=== PATIENT | female | born 2005 | race Caucasian/White ===

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

== ENCOUNTER 2025-01-04 18:18 | Emergency (ER) | payer OTHER, SELFPAY ==
--- OUTSIDE RECORDS SUMMARY | 2025-01-04 18:21 | XMS_ITS | Encounter Summary ---
Author Organization [facility] Address [address] [place] [address] Care Team Providers Care Human Factors Engineer Name Role Phone Anaid Luong MD Primary Care Provider [phone] Bria Mendoza DO Unavailable [phone] Reason for Visit * Reason Onset Date Comments Refill Request 04/26/2019 Levothyroxine Encounter Details Date Type Department Care Team (Late st Contact Info) Description 04/26/2019 Telephone [facility] Pediatrics - Endocrinology [address] [place] [id number] Mendy Carrasco Refill Request (Levothyroxine ) Social History Tobacco Use Types Packs/Day Years Used Date Smoking Tobacco: Never Smokeless Tobacco: Never Comments No Sex and Gender Information Value Date Recorded Sex Assigned at Female 08/08/2022 1:01 PM HOUSEKEEPER AND LAUNDRY ASSISTANT Legal Sex Female 5:44 AM HOUSEKEEPER AND LAUNDRY ASSISTANT Gender Identity Female 08/08/2022 1:01 PM HOUSEKEEPER AND LAUNDRY ASSISTANT Sexual Orientation Not on file documented as of this encounter Functional Status * Is person deaf or have serious hearing difficulty? Answer Date of Assessment Author No 03/15/2015 2:20 PM CDT Heron Smith RN * Is person blind or have serious difficulty seeing? Answer Date of Assessment Author No 03/15/2015 2:20 PM CDT Heron Smith RN * Does person have serious difficulty walking/climbing stairs? Answer Date of Assessment Author No 03/15/2015 2:20 PM CDT Heron Smith RN * Does person have difficulty dressing/bathing? Answer Date of Assessment Author No 03/15/2015 2:20 PM CDT Heron Smith RN * Does person have difficulty doing errands alone? Answer Date of Assessment Author No 03/15/2015 2:20 PM CDT Heron Smith RN documented as of this encounter Mental Status * Does person have difficulty concentrating/remembering/making decisions? Answer Entry Date Author No 03/15/2015 2:20 PM CDT Heron Smith RN documented in this encounter Plan of Treatment Not on file documented as of this encounter Visit Diagnoses Not on filedocumented in this encounter Care Teams Human Factors Engineer Relationship Specialty Start Date End Date Anaid Luong MD [address] [place] [address] PCP - General 11/22/10 Bria Mendoza DO [address] [place] [address] Pediatrics 12/07/19 documented as of this encounter
--- OUTSIDE RECORDS SUMMARY | 2025-01-04 18:21 | XMS_ITS | Patient Health Record ---
Author Organization [facility] Address [address] [place] [address] Care Team Providers Care Keeler Polygraph Operator Name Role Phone Rosalie Barrientos [phone] Reason For Referral No Information Encounters Encounter Location Date Provider Diagnosis [facility] - Rosalie Barrientos [address] [place] [address] 09/13/2024 Rosalie Barrientos Plan Of Treatment No Information
--- OUTSIDE RECORDS SUMMARY | 2025-01-04 18:21 | XMS_ITS ---
Author Organization [employer] [facility] Address [address] [address] Care Team Providers Care Toll Line Repairer Name Role Phone Rosalie Barrientos [phone] REASON FOR VISIT est. care vincenzo Encounters Encounter Location Date Provider Diagnosis [facility] - Rosalie Barrientos [address] [place] [address] 09/13/2024 Rosalie Barrientos Plan Of Treatment No Information Progress Notes * Malissa LEBRONOB:[birth year] (19 yo F)Acc No.[id number]:09/13/2024 Progress Notes Patient: Sam PATEL Provider: Efra Barrientos MD :2005 A ge:18 Y S ex:Female Date:09/13/2024 Address:[address] [place] [address] Earl Alexanderksfunmilayo [id number] Subjective: * Chief Complaints: * 1 . Est. care vincenzo. * Medical History: Objective: * Vitals: Assessment: Plan: * Treatment: * Billing Information: * Visit Code: * Procedure Codes: * Electronic signature of Celestino Barrientos MD on 01/04/2025 at 06:20 PM CDT Sign off status: Pending * Provider: Efra Barrientos MD Date: 0 09/13/2024 Generated for Printi ng/Faxing/eTransmitting on: 0 01/04/2025 06:20 PM CDT
--- OUTSIDE RECORDS SUMMARY | 2025-01-04 18:21 | XMS_ITS | Encounter Summary ---
Author Organization [facility] Address [address] [place] [address] Care Team Providers Care Sharepoint Net Developer Name Role Phone Anaid Luong MD Primary Care Provider [phone] Bria Mendoza DO Unavailable [phone] Reason for Visit * Reason Onset Date Comments Results 01/27/2012 Encounter Details Date Type Department Care Team (Late st Contact Info) Description 01/27/2012 Telephone [facility] Pediatrics - Immunology [address] [place] [id number] Tamra Black RN Results Social History Tobacco Use Types Packs/Day Years Used Date Smoking Tobacco: Never Comments Unknown Sex and Gender Information Value Date Recorded Sex Assigned at Female 08/08/2022 1:01 PM TUBULAR PRODUCTS FABRICATOR Legal Sex Female 5:44 AM TUBULAR PRODUCTS FABRICATOR Gender Identity Female 08/08/2022 1:01 PM TUBULAR PRODUCTS FABRICATOR Sexual Orientation Not on file documented as [...] diseases documented in this encounter Care Teams Sharepoint Net Developer Relationship Specialty Start Date End Date Anaid Luong MD [address] [place] [address] [address] [place] [address] PCP - General 11/22/10 Bria Mendoza DO [address] [place] [address] Pediatrics 12/07/19 documented as of this encounter
--- OUTSIDE RECORDS SUMMARY | 2025-01-04 18:21 | XMS_ITS | Clinical Summary ---
Author Organization [facility] Address [address] [facility] [place] [address] Care Team Providers Care Case Consultant Name Role Phone Anaid Luong MD Primary Care Provider [phone] Bria Mendoza DO Unavailable Source Comments [facility],non-owned Affiliates and Associated Physician Practices is amultiple site organization consisting of ambulatory clinics and hospital sitesin [place], [place], [place] and [place]. This disclosure is being madepursuant to the Care Everywhere program and may not contain all information available regarding this patient. Last updated 18.[facility] Allergies No known active allergies Medications * Be aware that medications may not be up to date on this document. Alwaysverify current medications with the patient. Spacer/Aero-Holdin g Chambers (AEROCHAMBER PLUS W/MASK)Indications :Asthma Use as directed. 1 Device 1 2 Active cetirizine (ZYRTEC) 10 MG tablet Take 1 (one) tablet by mouth once daily Active fluticasone propionate (FLONASE) 50 MCG/ACT nasal sprayIndications:S easonal allergic rhinitis due to pollen INSTIL ONE SPRAY INTO EACH NOSTRIL EVERY DAY 16 g 1 0 Active B Complex Vitamins (VITAMIN B COMPLEX 100 IJ) 1 tablet by Injection route Active albuterol HFA (PROVENTIL; VENTOLIN; PROAIR) 108 (90 Base) MCG/ACT inhalerIndications :Mild persistent asthma without complication (HCC) INHALE 2 PUFFS VIA SPACER EVERY 4 HOURS NEEDED FOR WHEEZING 18 g 3 2 Active budesonide-formote rol (Symbicort) 80-4.5 MCG/ACT inhalerIndications :Mild persistent asthma without complication (HCC) Inhale 2 (two) puffs by mouth 2 times daily 10.2 g 5 3 Active levothyroxine (Synthroid) 75 MCG tabletIndications: Acquired hypothyroidism TAKE 1/2 TABLET BY MOUTH EVERY DAY BEFORE BREAKFAST 15 tablet 5 5 Active Active Problems Patient Care Coordination No te [...] 1.3 Assessment & Plan (08/03/2019 4:18 PM MAINTENANCE SUPERVISOR ELECTRICAL): Scheduled for adenotonsillectomy now in October (during [...] has had the influenza vaccine for the 0039-0607 season. The patient's parent(s) and I discussed [...] medications. Assessment & Plan (08/03/2019 4:16 PM MAINTENANCE SUPERVISOR ELECTRICAL): As noted below, continues to do quite [...] care for likely viral gastroenteritis. Follow-up with programs director in 2-3 days. Recurrent infections 01/15/2012 Overview [...] PRN Assessment & Plan (07/02/2016 1:49 PM MAINTENANCE SUPERVISOR ELECTRICAL): Recent increase in symptoms, frequent albuterol use and wheezing noted on exam. Has typically struggled more at this time of the year. Has been off Flovent for some time. Rec: Restart Flovent 44 2 puffs bid Albuterol prn Refills provided Reviewed Aerochamber technique Reviewed inhaler technique Influenza vaccine has been received this fall. F/U prn Hypoglycemia 01/30/2010 01/15/2012 Overview (04/19/2015): Immunizations Immunization Administration Dates Next Due DTAP, HISTORIC VACCINE [...] QUADRIVALENT; 6MO+), 0.5 ML (IIV4) 03/29/2019,04/20/2018,04/19/2018 MENINGOCOCCAL ACWY MENVEO 12/31/2016 MMR 02/21/2011,10/14/2006 Meningococcal ACWY (Menquadfi) Vac IM 12/08/2022 Meningococcal B Recombinant 2 Dose, IM 3 POLIO,HISTORIC VACCINE 02/21/2011,2006,02/02/2006,12/02 Pneumococcal Pcv13 Conj 10/14/2006,04/06,02/02/2006,12/02 [...] Recorded Patient Health Questionnaire-2 Score 0 10/26/2023 Comments No Sex and Gender Information Value Date Recorded Sex Assigned at Female 08/08/2022 1:01 PM MAINTENANCE SUPERVISOR ELECTRICAL Legal Sex Female 5:44 AM MAINTENANCE SUPERVISOR ELECTRICAL Gender Identity Female 08/08/2022 1:01 PM MAINTENANCE SUPERVISOR ELECTRICAL Sexual Orientation Not on file Last Filed Vital Signs Vital Sign Reading Time Taken Comments Blood Pressure 119/68 06/27/2024 1:48 PM MAINTENANCE SUPERVISOR ELECTRICAL Pulse 56 06/27/2024 1:48 PM MAINTENANCE SUPERVISOR ELECTRICAL Temperature 36.6 C (97.8 F) 03/15/2015 2:45 PM CDT Respiratory Rate 16 06/27/2024 1:48 PM MAINTENANCE SUPERVISOR ELECTRICAL Oxygen Saturation 99% 11/12/2022 3:47 PM CDT Inhaled Oxygen Concentration - - Weight 83.9 kg (184 lb 15.5 oz) 06/27/2024 1:48 PM MAINTENANCE SUPERVISOR ELECTRICAL Height 157 cm (5' 1.81) 06/27/2024 1:48 PM MAINTENANCE SUPERVISOR ELECTRICAL Body Mass Index 34.04 06/27/2024 1:48 PM MAINTENANCE SUPERVISOR ELECTRICAL Body Mass Index Percentile 96.69% 06/27/2024 1:4 8 PM MAINTENANCE SUPERVISOR ELECTRICAL Growth Chart: CDC (Girls, 2- 20 Years) Plan of Treatment Health Maintenance Due Date Last Done Comments PNEUMOCOCCAL VACCINE (1 of 1 - PPSV23) 10/04/2011 10/14/2006, 04/06/2006, 02/02/2006, Additional history exists HIV SCREENING 2020 CHLAMYDIA/GONORRHEA SCREENING 2021 MENINGOCOCCAL (Group B) VACC INE SHARED DECISION-MAKING (2 of 2 - Bexsero SCDM 2-dose series) 06/10/2023 12/08/2022 HEPATITIS C SCREENING 09/29/2023 COVID-19 VACCINE (1 - 2023-2 5 season) 2024 DEPRESSION SCREENING 07/20/2024 10/26/2023, 10/13/2022, 01/24/2022 INFLUENZA VACCINE (Season Ended) 2025 04/19/2020, 03/29/2019, 03/29/2019, Additional history exists DTAP/TDAP/TD VACCINES (7 - T d or Tdap) 12/31/2026 12/31/2016, 02/21/2011, 02/21/2011, Additional history exists ZOSTER VACCINE (1 of 2) 10/04/2055 HEPATITIS B VACCINE Completed 04/06/2006, 2005, 2005 HIB VACCINE Completed 01/13/2007, 03/20, 02/02/2006, Additional history exists HPV VACCINE Completed 01/06/2018, 12/31/2016 MENINGOCOCCAL GROUPS A/C/Y/W VACCINE Completed 12/08/2022, 12/31/2016 Medical Devices Implanted Type Area Reaming Machine Tender Device Identifier Shelf Expiration Date Model / Serial / Lot Log [id number] - Tympanostomy Tubes Jose - 1 - Tube Vent Cllr Butn 3mm X 1.5mm X 1.27mm Implanted:Qty: 2 on 01/19/2012 at [facility] Bilateral : Ear [employer] 10/18/2016 [id number] / / Insurance [facility] Care Teams Case Consultant Relationship Specialty Start Date End Date Anaid Luong MD [address] [facility] [address] [place] [address] PCP - General 11/22/10 Bria Mendoza DO [address] [place] [address] Pediatrics 12/07/19
--- OUTSIDE RECORDS SUMMARY | 2025-01-04 18:21 | XMS_ITS | Encounter Summary ---
Author Organization [facility] Address [address] [place] [address] Care Team Providers Care Plastic Sheets Finishing Supervisor Name Role Phone Anaid Luong MD Primary Care Provider [phone] Bria Mendzoa DO Unavailable [phone] Encounter Details Date Type Department Care Team (Late st Contact Info) Description 12/10/2020 Telephone [facility] Pediatrics - Endocrinology [address] [place] [address] Bria Mendoza, [address] [place] [address] Social History Tobacco Use Types Packs/Day Years Used Date Smoking Tobacco: Never Smokeless Tobacco: Never PHQ-2 Answer Date Recorded Patient Health Questionnaire-2 Score 1 06/06/2020 Comments No Sex and Gender Information Value Date Recorded Sex Assigned at Female 08/08/2022 1:01 PM LAB ANIMAL TECHNICIAN Legal Sex Female 5:44 AM LAB ANIMAL TECHNICIAN Gender Identity Female 08/08/2022 1:01 PM LAB ANIMAL TECHNICIAN Sexual Orientation Not on file COVID-19 Exposure [...] Heron Smith RN documented in this encounter Miscellaneous Notes * Telephone Encounter [...] on filedocumented in this encounter Care Teams Plastic Sheets Finishing Supervisor Relationship Specialty Start Date End Date Anaid Luong MD [facility] [address] [place] [address] PCP - General 11/22/10 Bria Mendoza DO [facility] [place] [address] Pediatrics 12/07/19 documented as of this encounter
[2025-01-04 18:23] VITALS: BP 152/56; PULSE 84; RESP 16; TEMP 36.8; O2SAT 100
[2025-01-04 18:37] LABS: EDSTREPNEGPOS1 Negative (Negative)
--- NOTE | 2025-01-04 18:43 | ED.URI ---
HPI - URI/Sore Throat General Chief Complaint: Upper Respiratory Infection Stated Complaint: Sore Throat Time Seen by Provider: 01/04/25 18:27 Source: patient and RN notes reviewed Mode of arrival: ambulatory Limitations: no limitations History of Present Illness HPI Narrative: Patient presents today with a 2 day history of nasal congestion, sore throat, fatigue with cough that started today. Denies fever, shortness of breath, difficulty swallowing. Patient works in a preschool. Currently rates her pain 4/10. She takes Zyrtec daily throughout the year and states it has been providing only mild relief. Related Data Home Medications ?Medication ?Instructions ?Recorded ?Confirmed ?Last Taken ?Type albuterol sulfate 90 mcg/actuation 1 puff inhalation DIRECTED 07/02/19 01/06/24 Unknown History aerosol inhaler budesonide-formoterol HFA 80 1 puff inhalation DIRECTED 07/02/19 01/06/24 01/05/24 History mcg-4.5 mcg/actuation aerosol inhaler (Symbicort) cetirizine 10 mg tablet (Zyrtec) 10 mg PO DIRECTED 07/02/19 01/06/24 Unknown History fluticasone propionate 50 1 spray intranasal DIRECTED 07/02/19 01/06/24 01/05/24 History mcg/actuation nasal spray,suspension levothyroxine 75 mcg tablet 75 mcg PO DIRECTED 07/02/19 01/06/24 01/05/24 History B Complex-Vitamin B12 1 tab-cap PO DIRECTED 05/28/21 01/06/24 Unknown History pediatric multivitamin no.29 1 tablet PO DIRECTED 05/28/21 01/06/24 Unknown History (Gummies Girls' Multivitamins chewable tablet) Allergies Allergy/AdvReac Type Severity Reaction Status Date / Time cat dander Allergy Mild EYES RED, Verified 01/04/25 18:29 SNEEZING Review of Systems Review of Systems: CONSTITUTIONAL: Denies body aches, fever, chills, or sweats.+ fatigue EYES: Denies visual changes, redness, or discharge. ENT: Denies rhinorrhea, or otalgia.+ congestion, sore throat CARDIOVASCULAR: Denies chest pain, palpitations, or edema. RESPIRATORY: Denies dyspnea.+ cough GASTROINTESTINAL: Denies abdominal pain, nausea, vomiting, or diarrhea. GENITOURINARY: Denies dysuria or hematuria. SKIN: Denies rash, itching, or wounds. MUSCULOSKELETAL: Denies back pain, joint pain, or myalgia. NEUROLOGIC: Denies headache, numbness, tingling, or weakness. PSYCH: Denies depression or anxiety. [facility] Past Medical History Medical History Thyroid disease Anxiety Asthma Allergies Surgical History Surgical History History of placement of ear tubes Family History Family History Mother Asthma Depression Thyroid disorder Social History Social History Smoking status: Never smoker Alcohol intake: never Substance use: never Substance use type: does not use Living arrangements: with family Comments At time of signature, I have reviewed and agree with nursing past medical, surgical, social and family history unless otherwise noted. Please see nursing chart for further information. There is no relevant family history pertinent to the presenting complaint Exam Narrative: GENERAL: Mildly a-appearing, well-nourished, and in no acute distress. HEAD: Normocephalic, atraumatic. EYES: EOMI. No redness or drainage. Conjunctivae normal. ENT: Mucous membranes pink and moist. Nares congested with rhinorrhea. TMs normal bilaterally. Throat mildly erythematous without edema or exudate. Uvula midline. Tiny ulceration on erythematous base to the left lateral soft palate. NECK: Normal AROM. Supple. No lymphadenopathy. CHEST: No respiratory distress. Clear to auscultation. HEART: Regular rate and rhythm. No murmur appreciated. EXTREMITIES: Normal range of motion. No edema. SKIN: Warm, dry, no rash. Capillary refill normal. Normal skin turgor. NEURO: No focal deficits. Alert and oriented x3. Gait steady. PSYCH: Normal affect. No signs of depression or anxiety. Course Course Level of Care: Express Care Visit Vital Signs Vital signs: Vital Signs Temperature 98.3 F 01/04/25 18:23 Pulse Rate 84 06/18/25 18:23 Respiratory Rate 16 01/04/25 18:23 Blood Pressure 152/56 H 01/04/25 18:23 Pulse Oximetry 100 01/04/25 18:23 Oxygen Delivery Room Air 01/04/25 18:23 Temperature 98.3 F 01/04/25 18:23 Pulse Rate 84 01/04/25 18:23 Respiratory Rate 16 01/04/25 18:23 Blood Pressure 152/56 H 01/04/25 18:23 Pulse Oximetry 100 01/04/25 18:23 Oxygen Delivery Room Air 01/04/25 18:23 Reviewed MDM - URI/Sore Throat MDM Narrative Medical decision making narrative: Rapid strep negative. Culture pending. Symptoms likely due to seasonal allergies/rhinitis. Discussed OTC treatments for symptom control. Anticipatory guidance given. Differential Diagnosis Differential diagnosis: Likely upper respiratory infection, sinusitis, viral infection, pharyngitis and other (Strep throat, seasonal allergies) Lab Data Attestation: I reviewed the patient's lab results. Labs: Lab Results 01/04/25 Range/Units 18:35 POC Grp A Strep Screen Negative (Negative) Critical Care Time Critical Care Time Critical Care Time: No Discharge Plan Discharge Clinical Impression: Seasonal allergies Patient Disposition: Home Condition: Stable Instructions: Allergies (ED) Additional Instructions: Your rapid strep screen is negative today. You will be notified by phone if your culture comes back positive in a few days. Start a decongestant such as Sudafed and an intranasal steroid such as Flonase. For your throat, take ibuprofen, Tylenol, use Chloraseptic spray, or cough drops. You may want to avoid salty, fried, or spicy foods as this may irritate the ulceration in your throat. Follow-up with your PCP in 1 week if symptoms are not improving, or sooner if symptoms worsen. Your blood pressure was elevated above 120/80 today at Urgent Care. This puts you above the threshold for follow up. Please schedule a followup visit with your personal physician as soon as possible, for further evaluation and treatment. Even blood pressure exceeding 120/80 may indicate pre-hypertension. Patient Language: Setswana Prescriptions: No Action levothyroxine 75 mcg tablet 75 mcg PO DIRECTED albuterol sulfate 90 mcg/actuation HFA aerosol inhaler 1 puff INHALATION DIRECTED budesonide-formoterol [Symbicort] 80-4.5 mcg/actuation HFA aerosol inhaler 1 puff INHALATION DIRECTED cetirizine [Zyrtec] 10 mg Tablet 10 mg PO DIRECTED fluticasone propionate 50 mcg/actuation spray,suspension 1 spray INTRANASAL DIRECTED B Complex-Vitamin B12 1 tab-cap PO DIRECTED Gummies Girls' Multivitamins Tablet,Chewable 1 tablet PO DIRECTED omeprazole 40 mg capsule,delayed release(DR/EC) 40 mg PO DAILY Qty: 30 2RF Follow-up/Referrals: Anaid Luong MD [Primary Care Provider] - Time of Disposition: 18:46
== END 2025-01-04 18:50 | disposition home or self-care (01) ==
PROVIDERS: Emergency Provider Nurse Practitioner; PCP Pediatrics
DX: J30.2 Other seasonal allergic rhinitis (principal); E07.9 Disorder of thyroid, unspecified; J45.909 Unspecified asthma, uncomplicated
CPT/HCPCS: 87081; 87880; 99213; G0463

== ENCOUNTER 2025-02-15 14:13 | Emergency (ER) | payer OTHER, SELFPAY ==
[2025-02-15 14:22] VITALS: BP 100/61; PULSE 131; RESP 20; TEMP 39.5; O2SAT 100
--- OUTSIDE RECORDS SUMMARY | 2025-02-15 14:22 | XMS_ITS | Patient Health Record ---
Author Organization [facility] Address [address] [place] [address] [address] [place] [address] Care Team Providers Care Chief Psychology Name Role Phone Rosalie Barrientos Unavailable [phone] Allergies Allergen (clinical drug ingredient) Drug/Non Drug Allergy documented on EMR Reaction Allergy Type Onset Date Status Cats Unknown Allergy Active Results Component Value Reference Range Flag Notes .COMPREHENSIVE METABOLIC BANG EL (37589) CMP Reviewed date:02/02/2025 07:03:30 PM Interpretation: Performing Lab:KS, [facility]-[id number] Aristeo Rajan, WaqngeBP[address] Saira Art MD Notes/Report: FASTING:YES FASTING: YES GLUCOSE 88 65-99 mg/dL N Fasting reference interval UREA NITROGEN (BUN) 8 7-20 mg/dL N CREATININE 0.63 0.50-0.96 mg/dL N EGFR 131 > OR = 60 mL/min/1.73m2 N BUN/CREATININE RATIO SEE NOTE: 6-22 (calc) Not Reported: BUN and Creatinine are within reference range. SODIUM 138 135-146 mmol/L N POTASSIUM 4.2 3.8-5.1 mmol/L N CHLORIDE 106 98-110 mmol/L N CARBON DIOXIDE 22 20-32 mmol/L N CALCIUM 9.3 8.9-10.4 mg/dL N PROTEIN, TOTAL 7.4 6.3-8.2 g/dL N ALBUMIN 4.4 3.6-5.1 g/dL N GLOBULIN 3.0 2.0-3.8 g/dL (calc) N ALBUMIN/GLOBULIN RATIO 1.5 1.0-2.5 (calc) N BILIRUBIN, TOTAL 0.3 0.2-1.1 mg/dL N ALKALINE PHOSPHATASE 69 36-128 U/L N AST 11 12-32 U/L L ALT 8 5-32 U/L N IRON AND TOTAL IRON BINDING CAPACITY (7573) Reviewed date:02/02/2025 07:03:30 PM Interpretation: Performing Lab:MARCELA [facility]-[id number] Aristeo Hernandez, VkpvkuQM[address] Saira Art MD Notes/Report: FASTING:YES FASTING: YES IRON, TOTAL 49 27-164 mcg/dL N IRON BINDING CAPACITY 359 271-448 mc g/dL (calc) N % SATURATION 14 15-45 % (calc) L .LIPID PANEL, STANDARD (7600 ) Reviewed date:02/02/2025 07:03:30 PM Interpretation: Performing Lab:MARCELA [facility]-Fclvex46561 Aristeo Hernandez, FdikrnUU[address] Saira Art MD Notes/Report: FASTING:YES FASTING: YES CHOLESTEROL, TOTAL 175 <170 mg/dL H HDL CHOLESTEROL 41 >45 mg/dL L TRIGLYCERIDES 91 <90 mg/dL H LDL-CHOLESTEROL 115 <110 mg/dL (calc) H LDL-C is now calculated using the Gerardo-Franklin calculation, which is a validated novel method providing better accuracy than the Friedewald equation in the estimation of LDL-C. Gerardo SS et al. LOUIS. 2013;310(19): 4033-2514 (http://education.Sokrati.com/faq/F AQ164) CHOL/HDLC RATIO 4.3 <5.0 (calc) N NON HDL CHOLESTEROL 134 <120 mg/dL (calc) H For patients with diabetes plus 1 major ASCVD risk factor, treating to a non-HDL-C goal of <100 mg/dL (LDL-C of <70 mg/dL) is considered a therapeutic option. .CBC (INCLUDES DIFF/PLT) (63 99) Reviewed date:02/02/2025 07:03:30 PM Interpretation: Performing Lab:MARCELA [facility]-Ynhhhs47590 Aristeo Hernandez, OvsowcRP[address] Saira Art MD Notes/Report: FASTING:YES FASTING: YES WHITE BLOOD CELL COUNT 6.3 3.8-10.8 Thousand/uL N RED BLOOD CELL COUNT 4.86 3.80-5.10 Million/uL N HEMOGLOBIN 12.8 11.7-15.5 g/dL N HEMATOCRIT 40.2 35.0-45.0 % N MCV 82.7 80.0-100.0 fL N MCH 26.3 27.0-33.0 pg L MCHC 31.8 32.0-36.0 g/dL L not clinically significant; however, it should be interpreted with caution in correlation with other red cell parameters and the patient's clinical condition. For adults, a slight decrease in the calculated MCHC value (in the range of 30 to 32 g/dL) is most likely RDW 13.1 11.0-15.0 % N PLATELET COUNT 327 140-400 Thousand/uL N MPV 9.6 7.5-12.5 fL N ABSOLUTE NEUTROPHILS 3950 9069-5396 cells/uL N ABSOLUTE LYMPHOCYTES 0287 516-6143 cells/uL N ABSOLUTE MONOCYTES 554 200-950 cells/uL N ABSOLUTE EOSINOPHILS 151 15-500 cells/uL N ABSOLUTE BASOPHILS 32 0-200 cells/uL N NEUTROPHILS 62.7 N LYMPHOCYTES 25.6 N MONOCYTES 8.8 N EOSINOPHILS 2.4 N BASOPHILS 0.5 N SED RATE BY MODIFIED BHARAT CATALAN (809) Reviewed date:02/02/2025 07:03:30 PM Interpretation: Performing Lab:Sarah MEDRANO-Cjzysa67380Usha MiltonaKS[address] Saira Art MD Notes/Report: FASTING:YES FASTING: YES SED RATE BY MODIFIED WESTERGREN 9 < OR = 20 mm/h N C-REACTIVE PROTEIN (4420) Reviewed date:02/02/2025 07:03:30 PM Interpretation: Performing Lab:Sarah MEDRANO-Ghjcuh18742Femi Hernandez, YhhypyGW[address] Saira Art MD Notes/Report: FASTING:YES FASTING: YES C-REACTIVE PROTEIN <3.0 <8.0 mg/L N CYCLIC CITRULLINATED PEPTIDE (CCP) AB (IGG) (92466) Reviewed date:02/02/2025 07:03:30 PM Interpretation: Performing Lab:Sarah MEDRANO [place] Saira Art MD Notes/Report: FASTING:YES FASTING: YES CYCLIC CITRULLINATED PEPTIDE (CCP) AB (IGG) <16 N Reference Range Negative: <20 Weak Positive: 20-39 Moderate Positive: 40-59 Strong Positive: >59 JOYD SCREEN, IFA, W/REFL TITE R AND PATTERN (249) Reviewed date:02/08/2025 05:04:11 PM Interpretation: Performing Lab:KS, AG[facility]P-Jhllax63800 Aristeo Hernandez, LxsfbdIM[address] Saira Art MD Notes/Report: FASTING:YES FASTING: YES FASTING:YES FASTING: YES JODY SCREEN, IFA POSITIVE NEGATIVE A JODY IFA is a first line screen for detecting the presence of up to approximately 150 autoantibodies in various autoimmune diseases. A positive JODY IFA result is suggestive of autoimmune disease and reflexes to titer and pattern. Further laboratory testing may be considered if clinically indicated. For additional information, please refer to http://education.Modulation Therapeutics/faq/FA Q120 (This link is being provided for informational/ educational purposes only.) JODY TITER 1:80 H 1:40-1:80 Low Antibody Level >1:80 Elevated Antibody Level Reference Range <1:40 Negative 1:40-1:80 Low Antibody Level >1:80 Elevated Antibody Level A low level JODY titer may be present in pre-clinical autoimmune diseases and normal individuals. Reference Range <1:40 Negative 1:40-1:80 Low Antibody Level >1:80 Elevated Antibody Level Reference Range <1:40 Negative JODY PATTERN Nuclear, Dense Fine Speckled A Staining of the intercellular bridge that connects daughter cells by the end of cell division, but before cell separation. Pattern is rare in systemic sclerosis, Raynaud's phenomenon, and in some malignancies. AC-27: Intercellular Bridge International Consensus on JODY Patterns (https://doi.org/05.03/exgy-2415-9351) Nuclear dots (1-6 in number per cell) pattern is seen in Sjogren's syndrome, systemic lupus erythematosus (SLE), systemic sclerosis (scleroderma), polymyositis, and asymptomatic individuals. AC-7: Few Nuclear Dots International Consensus on JODY Patterns (https://doi.org/05.03hpxa-0613-5398) Dense fine speckled pattern is seen in normal individuals and rarely associated with systemic lupus erythematosis (SLE), Sjogren's syndrome and systemic sclerosis. AC-2: Dense Fine Speckled International Consensus on JODY Patterns (https://doi.org/05.03sblp-4416-3027) JODY TITER 1:320 H 1:40-1:80 Low Antibody Level >1:80 Elevated Antibody Level Reference Range <1:40 Negative 1:40-1:80 Low Antibody Level >1:80 Elevated Antibody Level A low level JODY titer may be present in pre-clinical autoimmune diseases and normal individuals. Reference Range <1:40 Negative 1:40-1:80 Low Antibody Level >1:80 Elevated Antibody Level Reference Range <1:40 Negative JODY PATTERN Mitotic, Intercellular Bridge A Staining of the intercellular bridge that connects daughter cells by the end of cell division, but before cell separation. Pattern is rare in systemic sclerosis, Raynaud's phenomenon, and in some malignancies. AC-27: Intercellular Bridge International Consensus on JODY Patterns (https://doi.org/05.03nqcr-9823-5905) Nuclear dots (1-6 in number per cell) pattern is seen in Sjogren's syndrome, systemic lupus erythematosus (SLE), systemic sclerosis (scleroderma), polymyositis, and asymptomatic individuals. AC-7: Few Nuclear Dots International Consensus on JODY Patterns (https://doi.org/05.03eaeu-3948-3149) Dense fine speckled pattern is seen in normal individuals and rarely associated with systemic lupus erythematosis (SLE), Sjogren's syndrome and systemic sclerosis. AC-2: Dense Fine Speckled International Consensus on JODY Patterns (https://doi.org/05.03gzpu-1483-2255) JODY TITER 1:320 H 1:40-1:80 Low Antibody Level >1:80 Elevated Antibody Level Reference Range <1:40 Negative 1:40-1:80 Low Antibody Level >1:80 Elevated Antibody Level A low level JODY titer may be present in pre-clinical autoimmune diseases and normal individuals. Reference Range <1:40 Negative 1:40-1:80 Low Antibody Level >1:80 Elevated Antibody Level Reference Range <1:40 Negative JODY PATTERN Nuclear, Few Nuclear Dots A Staining of the intercellular bridge that connects daughter cells by the end of cell division, but before cell separation. Pattern is rare in systemic sclerosis, Raynaud's phenomenon, and in some malignancies. AC-27: Intercellular Bridge International Consensus on JODY Patterns (https://doi.org/05.03lztg-0485-3961) Nuclear dots (1-6 in number per cell) pattern is seen in Sjogren's syndrome, systemic lupus erythematosus (SLE), systemic sclerosis (scleroderma), polymyositis, and asymptomatic individuals. AC-7: Few Nuclear Dots International Consensus on JODY Patterns (https://doi.org/05.03rnht-9893-3541) Dense fine speckled pattern is seen in normal individuals and rarely associated with systemic lupus erythematosis (SLE), Sjogren's syndrome and systemic sclerosis. AC-2: Dense Fine Speckled International Consensus on JODY Patterns (https://doi.org/05.03ridz-5984-9071) .HEMOGLOBIN A1c (496) Reviewed date:02/02/2025 07:03:30 PM Interpretation: Performing Lab:Sarah LOPEZ [facility] [facility] HospitalGdmbcphYX[address] Saira Art Notes/Report: FASTING:YES FASTING: YES HEMOGLOBIN A1c 5.5 <5.7 % of total Hgb N According to [place] Diabetes Association (ADA) guidelines, hemoglobin A1c <7.0% represents optimal For the purpose of screening for the presence of diabetes: <5.7% Consistent with the absence of diabetes 5.7-6.4% Consistent with increased risk for diabetes (prediabetes) > or =6.5% Consistent with diabetes This assay result is consistent with a decreased risk of diabetes. Currently, no consensus exists regarding use of control in non- diabetic patients. Different metrics may apply to specific patient populations. Standards of Medical Care in Diabetes(ADA). hemoglobin A1c for diagnosis of diabetes in children. ESTRADIOL (4027) Reviewed date:02/02/2025 07:03:30 PM Interpretation: Performing Lab:Sarah MEDRANO-Dxktys63290 Aristeo Hernandez, PvezviEG[address] Saira Art MD Notes/Report: FASTING:YES FASTING: YES ESTRADIOL 133 N females), the [facility] Estradiol, Ultrasensitive, LCMSMS assay is recommended (order code 48397). Please note: patients being treated with the drug fulvestrant (Faslodex(R)) have demonstrated significant interference in immunoassay methods for estradiol measurement. The cross reactivity could lead to falsely elevated estradiol test results leading to an inappropriate clinical assessment of estrogen status. [facility] order code [id number], Ultrasensitive LC/MS/MS demonstrates negligible cross reactivity with fulvestrant. Reference Range Follicular Phase: 19-144 Mid-Cycle: 64-357 Luteal Phase: 56-214 Postmenopausal: < or = 31 Reference range established on post-pubertal patient population. No pre-pubertal reference range established using this assay. For any patients for whom low Estradiol levels are anticipated (e.g. males, pre-pubertal children and hypogonadal/post-menop ausal INSULIN (561) Reviewed date:02/02/2025 07:03:30 PM Interpretation: Performing Lab:MARCELA [employer] Ellie-Spqzyi62672 Aristeo Hernandez, CdvnizEO[address] Saira Art MD Notes/Report: FASTING:YES FASTING: YES INSULIN 17.3 N Optimal < or = 18.4 Moderate NA High >18.4 Adult cardiovascular event risk category cut points (optimal, moderate, high) are based on Insulin Reference Interval studies performed at [facility] in 2021. Reference Range < or = 18.4 Risk: PROGESTERONE (745) Reviewed date:02/02/2025 07:03:30 PM Interpretation: Performing Lab:Sarah MEDRANO-Unvouv82598 Aristeo Hernandez, GsuixrBJ[address] Saira Art MD Notes/Report: FASTING:YES FASTING: YES PROGESTERONE 7.9 N 1st Trimester 4.1-34.0 2nd Trimester 24.0-76.0 3rd Trimester 52.0-302.0 Reference Ranges Female Follicular Phase < 1.0 Luteal Phase 2.6-21.5 Post menopausal < 0.5 DHEA SULFATE (402) Reviewed date:02/02/2025 07:03:30 PM Interpretation: Performing Lab:MARCELA [facility]-Pfsjey91048 Aristeo Hernandez, EdzpogYT[address] Saira Art MD Notes/Report: FASTING:YES FASTING: YES DHEA SULFATE 105 44-286 mcg/dL N VITAMIN B12/FOLATE, SERUM PA LOREE (8459) Reviewed date:02/02/2025 07:03:30 PM Interpretation: Performing Lab:Sarah MEDRANO, TeqqfmVI[address] Saira Art MD Notes/Report: FASTING:YES FASTING: YES VITAMIN B12 602 753-9494 pg/mL N FOLATE, SERUM 12.0 N Normal: >5.4 Reference Range Low: <3.4 Borderline: 3.4-5.4 FSH (470) Reviewed date:02/02/2025 07:03:30 PM Interpretation: Performing Lab:Sarah MEDRANO, GauahoLX[address] Saira Art MD Notes/Report: FASTING:YES FASTING: YES FSH 2.8 N Luteal Phase 1.5- 9.1 Postmenopausal 23.0-116.3 Reference Range Follicular Phase 2.5-10.2 Mid-cycle Peak 3.1-17.7 LH (615) Reviewed date:02/02/2025 07:03:30 PM Interpretation: Performing Lab:Sarah MEDRANO, TmemnaZD[address]216-35[address] Saira Art MD Notes/Report: FASTING:YES FASTING: YES LH 6.5 N Reference Range Follicular Phase 1.9-12.5 Mid-Cycle Peak 8.7-76.3 Luteal Phase 0.5-16.9 Postmenopausal 10.0-54.7 FERRITIN (457) Reviewed date:02/02/2025 07:03:30 PM Interpretation: Performing Lab:Sarah MEDRANO [place] Saira Art MD Notes/Report: FASTING:YES FASTING: YES FERRITIN 24 16-154 ng/mL N T4, FREE (866) Reviewed date:02/02/2025 07:03:30 PM Interpretation: Performing Lab:Sarah MEDRANO [place]aKS[address] Saira Art MD Notes/Report: FASTING:YES FASTING: YES T4, FREE 1.4 0.8-1.4 ng/dL N CORTISOL, TOTAL (367) Reviewed date:02/02/2025 07:03:30 PM Interpretation: Performing Lab:Sarah MEDRANO-Rodger Mackay[address] Saira Art MD Notes/Report: FASTING:YES FASTING: YES CORTISOL, TOTAL 24.2 H Reference Range: For 4 p.m.(3-5 p.m.) Specimen: 3.0-17.0 * Please interpret above results accordingly * Reference Range: For 8 a.m.(7-9 a.m.) Specimen: 4.0-22.0 TSH (899) Reviewed date:02/02/2025 07:03:30 PM Interpretation: Performing Lab:Sarah MEDRANO [place]KS[address] Saira Art MD Notes/Report: FASTING:YES FASTING: YES TSH 1.27 N Reference Range 1-19 Years 0.50-4.30 Ranges First trimester 0.26-2.66 Second trimester 0.55-2.73 Third trimester 0.43-2.91 T3, FREE (95368) Reviewed date:02/02/2025 07:03:30 PM Interpretation: Performing Lab:Sarah MEDRANO [place]aKS[address] Saira Art MD Notes/Report: FASTING:YES FASTING: YES T3, FREE 3.4 3.0-4.7 pg/mL N .VITAMIN D,25-OH,TOTAL,IA (1 7306) Reviewed date:02/02/2025 07:03:30 PM Interpretation: Performing Lab:Sarah MEDRANO-Rodger Mackay[address] Saira Art MD Notes/Report: FASTING:YES FASTING: YES VITAMIN D,25-OH,TOTAL,IA 32 30-100 ng/mL N http://education.Modulation Therapeutics/faq/FA Q199 (This link is being provided for informational/ educational purposes only.) Vitamin D Status 25-OH Vitamin D: Deficiency: <20 ng/mL Insufficiency: 20 - 29 ng/mL Optimal: > or = 30 ng/mL For 25-OH Vitamin D testing on patients on D2-supplementation and patients for whom quantitation of D2 and D3 fractions is required, the QuestAssureD(TM) 25-OH VIT D, (D2,D3), LC/MS/MS is recommended: order code [id number] (patients >2yrs). See Note 1 Note 1 For additional information, please refer to TESTOSTERONE, FREE (DIALYSIS ) AND TOTAL,MS (92331) Reviewed date:02/08/2025 05:04:11 PM Interpretation: Performing Lab:Patrizia, [facility]-[address] [address], [address], XfrgzjglmuNL[address] Liana Caraballo MD,PhD Notes/Report: FASTING:YES FASTING: YES TESTOSTERONE, TOTAL, MS 25 2-45 ng/dL For additional information, please refer to https://education.SoupQubes/faq/F AQ165 (This link is being provided for informational/educatio nal purposes only.) (Note) This test was developed and its analytical performance characteristics have been determined by [employer]. It has not been cleared or approved by the FDA. This assay has been validated pursuant to the CLIA regulations and is used for clinical purposes. TESTOSTERONE, FREE 3.1 0.1-6.4 pg/mL [facility] [address] [address],[address] This test was developed and its analytical performance characteristics have been determined by [employer]. It has not been cleared or approved by the FDA. This assay has been validated pursuant to the CLIA regulations and is used for clinical purposes. (Note) [facility] [address] Liana Caraballo MD, PhD ACTH, PLASMA (211) Reviewed date:02/08/2025 05:04:11 PM Interpretation: Performing Lab:Sarah ALCANTAR/Afshin Aguirre [id number] [facility] , EpqyohounQN[address] Jian Donovan M.D.,PhD Notes/Report: FASTING:YES FASTING: YES ACTH, PLASMA 45 6-50 pg/mL Reference range applies only to specimens collected between 7am-10am. Reason For Referral No Information Medications Medication SIG (Take, Route, Frequency, Duration) Notes Start Date End Date Status ZyrTEC Allergy 10 MG Tablet 1 tablet Ora lly Once a day Active Levothyroxine Sodium 75 MCG Tablet TAKE 1/2 TABLET BY MOUTH EVERY DAY BEFORE BREAKFAST Oral; Duration: 30 Days Active dexAMETHasone 1 MG Tablet 1 tablet Orall y at 10 pm night before 8 am cortisol; Duration: 1 days 02/06/2025 Active Synthroid 75 MCG Tablet 1 tablet in the morning on an empty stomach Orally Once a day; Duration: 30 days 02/06/2025 Active metFORMIN HCl ER 500 MG Tablet Extended Release 24 Hour 1 tablet with meal Orally Once a day; Duration: 90 days 02/06/2025 Active Albuterol Sulfate (5 MG/ML) 0.5% Nebulization Solution as directed Inhalation Active Symbicort 80-4.5 MCG/ACT Aerosol as directed Inhalation Activ e Social History Social History Drug/Alcohol: Social Info Question Answer Notes Drugs Have you use non pre scription recreational drug(s) in past 12 months? No Alcohol Screen How often did you higginbotham ve a drink containing alcohol in the past year? none/never - 0 How many drinks did you have on a typical day when you drink? none, I don't drink - 0 How often did you have six or more drinks? never - 0 AUDIT-C score Negative Tobacco Use: Social Info Question Answer Notes Smoking History Are you a tobacco smoker / vaper? nons moker Are you an other tobacco user? 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 Barrientos [id number] [place] [phone] 01/12/2025 Rosalie Barrientos Hypothyroidism due to Jerome thyroiditis E06.3 ; Obesity (BMI 30-39.9) E66.9 ; Other fatigue R53.83 ; Lipid screening Z13.220 ; Vitamin D deficiency, unspecified E55.9 ; Irregular menstruation, unspecified N92.6 and Dietary counseling and surveillance Z71.[address] Barrientos [address] [place] [phone] 02/06/2025 Rosalie Barrientos Hypothyroidism due to Jerome thyroiditis E06.3 ; Obesity (BMI 30-39.9) E66.9 ; PCOS (polycystic ovarian syndrome) E28.2 and Dietary counseling and surveillance Z71.[address] Barrientos [address] [place] [phone] 01/12/2025 Rosaliedeepa Barrientos Assessments Encounter Date Diagnosis (ICD Code) Assessment Notes Treatment Notes Treatment Clinical Notes Section Notes 01/12/2025 Obesity (BMI 30-39.9) (ICD-10 - E66.9) 01/12/2025 Hypothyroidism due to Jerome thyroiditis (ICD-10 - E06.3) 02/06/2025 Obesity (BMI 30-39.9) (ICD-10 - E66.9) P 02/06/2025 Hypothyroidism due to Jerome thyroiditis (ICD-10 - E06.3) P 02/06/2025 PCOS (polycystic ovarian syndrome) (ICD-10 - E28.2) P 01/12/2025 Other fatigue (ICD-10 - R53.83) 01/12/2025 Lipid screening (ICD-10 - Z13.220) 02/06/2025 Dietary counseling and surveillance (ICD-10 - Z71.3) Spent 15 minutes preventative counseling patient on dietary recommendations and changes in setting of hyperglycemia- need to restrict refined sugars and processed foods and incorporate up to 150 minutes of moderate level activity weekly. P 01/12/2025 Vitamin D deficiency, unspecified (ICD-10 - E55.9) 01/12/2025 Irregular menstruation, unspecified (ICD-10 - N92.6) 01/12/2025 Dietary counseling and surveillance (ICD-10 - Z71.3) Spent 15 minutes preventative counseling patient on dietary recommendations and changes in setting of hyperglycemia- need to restrict refined sugars and processed foods and incorporate up to 150 minutes of moderate level activity weekly. 01/12/2025 Other 20-year-old female with history of delayed puberty and hypothyroidism presenting with menstrual symptoms, acne, hair loss, and weight management concerns. Assessment and Plan: 1. Hypothyroidism- Continue thyroid but transition to tirosint 75 mcg daily, given 30 day sample- Consider discussing Tirosint as an alternative if patient experiences issues with Synthroid 2. Menstrual irregularities- Recommend gynecological evaluation for further assessment of menstrual irregularities and associated symptoms- Consider pelvic ultrasound to evaluate for possible ovarian cysts, as previous imaging indicated their presence 3. Dermatological concerns- Consider referral to dermatology for evaluation and management of acne, oily skin, and hair loss- Recommend basic skincare regimen while awaiting dermatology consultation 4. Weight management- Discuss risks, benefits, and alternatives of Wegovy for weight management- If patient decides to proceed with Wegovy, provide instructions on proper use and potential side effects- Encourage lifestyle modifications, including diet and exercise, for weight management 5. Gallbladder dysfunction- Continue low-residue diet as previously recommended- Monitor for any worsening of gallbladder-related symptoms- Consider follow-up imaging or referral to gastroenterology if symptoms persist or worsen Spent 45 minutes preparing to see the patient (ex review of tests/chart), obtaining and / or reviewing separately obtained history, performing a medically appropriate examination and/or evaluation, counseling and educating the patient/family/floor care technician, ordering medications, tests, or procedures, referring and communicating with other health home health care physician, documenting clinical information in the electronic or other health record, independently interpreting results and communicating results to the patient/family/floor care technician and care coordinating patient plan. Patient alert and oriented x 4 and aware of discussion noted above and in agreeance to plan in management of weight management, irregular cycles/hormone concerns, hypothyroidism, lipid screening. 02/06/2025 Other Assessment and Plan: 1. Suspected Polycystic Ovary Syndrome (PCOS)- Start Metformin one tablet daily with largest meal- Patient informed to take with food and expect possible gastrointestinal side effects- Continue low-dose tirzepatide injections- Transition to Wegovy 0.25 mg injections for upcoming travel- Increase to 0.5 mg dose after two injections- Monitor response to treatment- Await pending testosterone results 2. Hypothyroidism- Continue current dose of thyroid medication (75 mcg)- Consider transition to Synthroid or Unithroid based on insurance coverage and availability- Arrange for medication delivery through pharmacy in [place], [place] during patient's extended stay- Follow up on thyroid function as needed 3. Weight Management- Continue low-dose tirzepatide injections- Transition to Wegovy 0.25 mg injections for upcoming travel- Increase to 0.5 mg dose after two injections- Provide 6 weeks supply of Wegovy 0.25 mg- Educate on proper administration and storage of medication 4. Mild Iron Deficiency Anemia- Start iron supplementation or multivitamin with iron- Recommend dietary sources of iron- Monitor response to supplementation 5. Hypercholesterolemi a- Recommend dietary modifications: increase intake of avocados, salmon, and tuna- Encourage regular exercise- Monitor lipid levels at follow-up 6. Vitamin D Deficiency- Start vitamin D supplementation- Recommend multivitamin containing vitamin D- Recheck vitamin D levels at follow-up 7. Elevated Cortisol- Order dexamethasone suppression test- Patient to take dexamethasone pill between 10-11 PM- Follow-up cortisol blood draw between 8-9 AM the next morning- Evaluate results and determine need for further workup Spent 25 minutes preparing to see the patient (ex review of tests/chart), obtaining and / or reviewing separately obtained history, performing a medically appropriate examination and/or evaluation, counseling and educating the patient/family/floor care technician, ordering medications, tests, or procedures, referring and communicating with other health home health care physician, documenting clinical information in the electronic or other health record, independently interpreting results and communicating results to the patient/family/floor care technician and care coordinating patient plan. Patient alert and oriented x 4 and aware of discussion noted above and in agreeance to plan in management of hypothyroidism, weight management/overweig ht, PCOS concerns and need to obtain DST. P Plan Of Treatment Next Appt Details Provider Name:Rosalie Barrientos, 10:00:00 AM, [id number] [place] [address], [place], [address], Insurance Providers Payer Name Payer Address Payer Phone Subscriber Number Group Number Insured Name Patient Relationship to Insured Coverage Start Date Coverage End Date [facility] [id number] [place] [address] [phone] [id number] Sam Lebron Self - patient is the insured Medical (General) History Medical History History ICD Code hypothyroidism SEASONAL ALLERGIES Surgical History Surgery Date(Month/Year) ear tubes Hospitalization History Reason Date(Month/Year) asthma nicu
--- OUTSIDE RECORDS SUMMARY | 2025-02-15 14:22 | XMS_ITS | Encounter Summary ---
Author Organization [facility] Address [address] [facility] [place] [address] Care Team Providers Care Technical Services Assistant Name Role Phone Anaid Luong MD Primary Care Provider [phone] Bria Mendoza DO Unavailable [phone] Reason for Visit * Reason Onset Date Comments Results 01/27/2012 Encounter Details Date Type Department Care Team (Late st Contact Info) Description 01/27/2012 Telephone [facility] Pediatrics - Immunology [address] [place] [address] Tamra Black RN Results Social History Tobacco Use Types Packs/Day Years Used Date Smoking Tobacco: Never Comments Unknown Sex and Gender Information Value Date Recorded Sex Assigned at Female 08/08/2022 1:01 PM PERSONAL DRIVER Legal Sex Female 5:44 AM PERSONAL DRIVER Gender Identity Female 08/08/2022 1:01 PM PERSONAL DRIVER Sexual Orientation Not on file documented as [...] diseases documented in this encounter Care Teams Technical Services Assistant Relationship Specialty Start Date End Date Anaid Luong MD [address] [place] [address] [address] [place] [address] PCP - General 11/22/10 Bria Mendoza DO [address] [place] [address] Pediatrics 12/07/19 documented as of this encounter
--- OUTSIDE RECORDS SUMMARY | 2025-02-15 14:23 | XMS_ITS ---
Author Organization [facility] Address [address] [address] Care Team Providers Care Maintenance Helper Utility Engineer Name Role Phone Rosalie Barrientos [phone] REASON FOR VISIT est. care vincenzo Encounters Encounter Location Date Provider Diagnosis [facility], [facility] - Rosalie Barrientos [address] [place] [address] 09/13/2024 Rosalie Barrientos Plan Of Treatment No Information Progress Notes * Malissa LEBRONOB:[birth year] (19 yo F)Acc No.[id number]:09/13/2024 Progress Notes Patient: Sam PATEL Provider: Efra Barrientos MD :2005 A ge:18 Y S ex:Female Date:09/13/2024 Address:[address] [place] [address] Earl Alexanderlafunmilayo [id number] Subjective: * Chief Complaints: * 1 . Est. care vincenzo. * Medical History: Objective: * Vitals: Assessment: Plan: * Treatment: * Billing Information: * Visit Code: * Procedure Codes: * Electronic signature of Celestino Barrientos MD on 02/15/2025 at 02:22 PM CDT Sign off status: Pending * Provider: Efra Barrientos MD Date: 09/13/2024 Generated for Printi ng/Faxing/eTransmitting on: 0 02/15/2025 02:22 PM CDT
--- OUTSIDE RECORDS SUMMARY | 2025-02-15 14:23 | XMS_ITS | Clinical Summary ---
Author Organization [facility] Address [address] [facility] [place] [address] Care Team Providers Care Radiology Assistant Name Role Phone Anaid Luong MD Primary Care Provider [phone] Bria Mendoza DO Unavailable Source Comments [facility],non-owned Affiliates and Associated Physician Practices is amultiple site organization consisting of ambulatory clinics and hospital sitesin [place], [place], [place] and [place]. This disclosure is being madepursuant to the Care Everywhere program and may not contain all information available regarding this patient. Last updated 18.[facility] Allergies No known active allergies Medications * [...] 1.3 Assessment & Plan (08/03/2019 4:18 PM AD TRAFFICKER): Scheduled for adenotonsillectomy now in October (during [...] has had the influenza vaccine for the 3537-3266 season. The patient's parent(s) and I discussed [...] medications. Assessment & Plan (08/03/2019 4:16 PM AD TRAFFICKER): As noted below, continues to do quite [...] care for likely viral gastroenteritis. Follow-up with leadite worker in 2-3 days. Recurrent infections 01/15/2012 Overview [...] PRN Assessment & Plan (07/02/2016 1:49 PM AD TRAFFICKER): Recent increase in symptoms, frequent albuterol use [...] Sex Assigned at Female 08/08/2022 1:01 PM AD TRAFFICKER Legal Sex Female 5:44 AM AD TRAFFICKER Gender Identity Female 08/08/2022 1:01 PM AD TRAFFICKER Sexual Orientation Not on file Last Filed Vital Signs Vital Sign Reading Time Taken Comments Blood Pressure 119/68 06/27/2024 1:48 PM AD TRAFFICKER Pulse 56 06/27/2024 1:48 PM AD TRAFFICKER Temperature 36.6 C (97.8 F) 03/15/2015 2:45 PM CDT Respiratory Rate 16 06/27/2024 1:48 PM AD TRAFFICKER Oxygen Saturation 99% 11/12/2022 3:47 PM CDT Inhaled Oxygen Concentration - - Weight 83.9 kg (184 lb 15.5 oz) 06/27/2024 1:48 PM AD TRAFFICKER Height 157 cm (5' 1.81) 06/27/2024 1:48 PM AD TRAFFICKER Body Mass Index 34.04 06/27/2024 1:48 PM AD TRAFFICKER Body Mass Index Percentile 96.69% 06/27/2024 1:4 8 PM AD TRAFFICKER Growth Chart: CDC (Girls, 2- 20 Years) Plan of Treatment Health Maintenance Due Date Last Done Comments PNEUMOCOCCAL VACCINE (1 of 1 - PPSV23, PCV20, or PCV21) 10/04/2011 10/14/2006, 04/06/2006, 02/02/2006, Additional history exists HIV SCREENING 2020 CHLAMYDIA/GONORRHEA SCREENING 2021 MENINGOCOCCAL (Group B) VACC INE SHARED DECISION-MAKING (2 of 2 - Bexsero SCDM 2-dose series) 06/10/2023 12/08/2022 HEPATITIS C SCREENING 09/29/2023 COVID-19 VACCINE (1 - 2023-2 5 season) 2024 DEPRESSION SCREENING 07/20/2024 10/26/2023, 10/13/2022, 01/24/2022 INFLUENZA VACCINE (#1) 2025 , 03/29/2019, 03/29/2019, Additional history exists DTAP/TDAP/TD VACCINES (7 - T d or Tdap) 12/31/2026 12/31/2016, 02/21/2011, 02/21/2011, Additional history exists ZOSTER VACCINE (1 of 2) 10/04/2055 HEPATITIS B VACCINE Completed 04/06/2006, 2005, 2005 HIB VACCINE Completed 01/13/2007, 03/20, 02/02/2006, Additional history exists HPV VACCINE Completed 01/06/2018, 12/31/2016 MENINGOCOCCAL GROUPS A/C/Y/W VACCINE Completed 12/08/2022, 12/31/2016 Medical Devices Implanted Type Area District Ranger Device Identifier Shelf Expiration Date Model / Serial / Lot Log [id number] - Tympanostomy Tubes Jose - 1 - Tube Vent Cllr Butn 3mm X 1.5mm X 1.27mm Implanted:Qty: 2 on 01/19/[address] [facility] Bilateral : Ear [employer] 10/18/2016 [id number] / / [place] [id number] [facility] CARE [facility] [place] [address] [facility] [place] [id number] [facility] Care Teams Radiology Assistant Relationship Specialty Start Date End Date Anaid Luong MD [address] [facility] [address] [place] [address] PCP - General 11/22/10 Bria Mendoza DO [address] [place] [address] Pediatrics 12/07/19
--- OUTSIDE RECORDS SUMMARY | 2025-02-15 14:23 | XMS_ITS | Encounter Summary ---
Author Organization [facility] Address [address] [facility] [place] [address] Care Team Providers Care Central Office Equipment Engineer Name Role Phone Anaid Luong MD Primary Care Provider [phone] Bria Mendoza DO Unavailable [phone] Encounter Details Date Type Department Care Team (Late st Contact Info) Description 12/10/2020 Telephone [facility] Pediatrics - Endocrinology [address] [place] [address] Bria Mendoza, [address] [place] [address] Social History Tobacco Use Types Packs/Day Years Used Date Smoking Tobacco: Never Smokeless Tobacco: Never PHQ-2 Answer Date Recorded Patient Health Questionnaire-2 Score 1 06/06/2020 Comments No Sex and Gender Information Value Date Recorded Sex Assigned at Female 08/08/2022 1:01 PM CLINICAL MATERIAL HANDLER Legal Sex Female 5:44 AM CLINICAL MATERIAL HANDLER Gender Identity Female 08/08/2022 1:01 PM CLINICAL MATERIAL HANDLER Sexual Orientation Not on file COVID-19 Exposure [...] on filedocumented in this encounter Care Teams Central Office Equipment Engineer Relationship Specialty Start Date End Date Anaid Luong MD [facility] [address] [place] [address] PCP - General 11/22/10 Bria Mendoza DO [facility] [place] [address] Pediatrics 12/07/19 documented as of this encounter
--- OUTSIDE RECORDS SUMMARY | 2025-02-15 14:24 | XMS_ITS | Patient Health Record ---
Author Organization [facility] Address [address] [place] [address] Care Team Providers Care First Line Production Supervisor Name Role Phone Rosalie Barrientos [phone] Reason For Referral No Information Encounters Encounter Location Date Provider Diagnosis [facility] - Rosalie Barrientos [address] [place] [address] 09/13/2024 Rosalie Barrientos Plan Of Treatment No Information
--- OUTSIDE RECORDS SUMMARY | 2025-02-15 14:24 | XMS_ITS | Encounter Summary ---
Author Organization [facility] Address [address] [place] [address] Care Team Providers Care Auto Mechanic Name Role Phone Anaid Luong MD Primary Care Provider [phone] Bria Mendoza DO Unavailable [phone] Reason for Visit * Reason Onset Date Comments Refill Request 04/26/2019 Levothyroxine Encounter Details Date Type Department Care Team (Late st Contact Info) Description 04/26/2019 Telephone [facility] Pediatrics - Endocrinology [address] [place] [address] Mendy Carrasco Refill Request (Levothyroxine ) Social History Tobacco Use Types Packs/Day Years Used Date Smoking Tobacco: Never Smokeless Tobacco: Never Comments No Sex and Gender Information Value Date Recorded Sex Assigned at Female 08/08/2022 1:01 PM PAINT PREPARER Legal Sex Female 5:44 AM PAINT PREPARER Gender Identity Female 08/08/2022 1:01 PM PAINT PREPARER Sexual Orientation Not on file documented as [...] on filedocumented in this encounter Care Teams Auto Mechanic Relationship Specialty Start Date End Date Anaid Luong MD [address] [facility] [address] [place] [address] PCP - General 11/22/10 Bria Mendoza DO [address] [place] [address] Pediatrics 12/07/19 documented as of this encounter
--- NOTE | 2025-02-15 14:41 | ED_ITS ---
HPI - URI/Sore Throat General Chief Complaint: Upper Respiratory Infection Stated Complaint: Sore Throat Time Seen by Provider: 02/15/25 14:30 Source: patient Mode of arrival: ambulatory Limitations: no limitations History of Present Illness HPI Narrative: 19 yo F presents with c/o sore throat, fatigue, chills, fever for 1 days. Fever 103F on arrival. Took tylenol 10 minus prior to arrival. Vomited once last night. Able to keep down fluids. All systems reviewed and negative except as noted above. Related Data Home Medications ?Medication ?Instructions ?Recorded ?Confirmed ?Last Taken ?Type albuterol sulfate 90 mcg/actuation 1 puff inhalation DIRECTED 07/02/19 01/06/24 Unknown History aerosol inhaler budesonide-formoterol HFA 80 1 puff inhalation DIRECTED 07/02/19 01/06/24 01/05/24 History mcg-4.5 mcg/actuation aerosol inhaler (Symbicort) cetirizine 10 mg tablet (Zyrtec) 10 mg PO DIRECTED 07/02/19 01/06/24 Unknown History fluticasone propionate 50 1 spray intranasal DIRECTED 07/02/19 01/06/24 01/05/24 History mcg/actuation nasal spray,suspension levothyroxine 75 mcg tablet 75 mcg PO DIRECTED 07/02/19 01/06/24 01/05/24 History B Complex-Vitamin B12 1 tab-cap PO DIRECTED 05/28/21 01/06/24 Unknown History pediatric multivitamin no.29 1 tablet PO DIRECTED 05/28/21 01/06/24 Unknown History (Gummies Girls' Multivitamins chewable tablet) Allergies Allergy/AdvReac Type Severity Reaction Status Date / Time cat dander Allergy Mild EYES RED, Verified 02/15/25 14:30 SNEEZING Review of Systems Review of Systems: CONSTITUTIONAL: Reports fever, chills, or sweats. EYES: Denies visual changes, redness, or discharge. ENT: Denies rhinorrhea, congestion. Reports sore throat. Denies otalgia. CARDIOVASCULAR: Denies chest pain, palpitations, or edema. RESPIRATORY: Denies cough or dyspnea. GASTROINTESTINAL: Denies abdominal pain, nausea, vomiting, or diarrhea. GENITOURINARY: Denies dysuria or hematuria. SKIN: Denies rash or itching. MUSCULOSKELETAL: Denies back pain, joint pain, or myalgia. NEUROLOGIC: Denies headache, numbness, or weakness. PSYCHIATRIC: Denies anxiety or depression. All other systems reviewed are negative, except as documented in HPI. [facility] Past Medical History Medical History Thyroid disease Anxiety Asthma Allergies Surgical History Surgical History History of placement of ear tubes Family History Family History Mother Asthma Depression Thyroid disorder Social History Social History Smoking status: Never smoker Alcohol intake: never Substance use: never Substance use type: does not use Living arrangements: with family Comments At time of signature, agree with nursing past medical, surgical, social and family history. There is no relevant family history pertinent to the presenting complaint. Exam Narrative: GENERAL: This is a well-nourished, well-developed patient, in no apparent distress. HEAD: normocephalic, atraumatic. EYES: PERRL. Sclera clear/white. Vision is grossly intact. EARS: External ears normal, auditory canals clear and without drainage, TMs normal without perforation. Hearing grossly intact. NOSE: External nose normal with no obvious nasal discharge, nares without redness, no rhinorrhea. THROAT: Mucous membranes moist, erythematous, tonsils 1+ bilaterally with exudates NECK: Neck supple, non-tender without lymphadenopathy, masses or thyromegaly. CARDIOVASCULAR: Regular rate and rhythm without murmurs, gallops, or rubs. RESPIRATORY: Clear to auscultation. Breath sounds equal bilaterally. No wheezes, rales, or rhonchi. SKIN: warm, Dry, intact with no suspicious lesions or rash, good texture and turgor. NEURO: awake, alert, and oriented to person, place and time. There were no obvious focal neurologic abnormalities. EXTREMITIES: No joint tenderness, effusion, or edema noted. Course Course Level of Care: Express Care Visit Vital Signs Vital signs: Vital Signs Temperature 39.5 C H 02/15/25 14:22 Pulse Rate 131 H 02/15/25 14:22 Respiratory Rate 20 02/15/25 14:22 Blood Pressure 100/61 02/15/25 14:22 Pulse Oximetry 100 02/15/25 14:22 Oxygen Delivery Room Air 02/15/25 14:22 Temperature 39.5 C H 02/15/25 14:22 Pulse Rate 131 H 02/15/25 14:22 Respiratory Rate 20 02/15/25 14:22 Blood Pressure 100/61 02/15/25 14:22 Pulse Oximetry 100 02/15/25 14:22 Oxygen Delivery Room Air 02/15/25 14:22 reviewed MDM - URI/Sore Throat MDM Narrative Medical decision making narrative: strep test negative. Strep culture ordered. Will treat patient with antibiotic due to exam findings. Patient agrees with plan of care. Patient is well-appearing, nontoxic. Differential Diagnosis Differential diagnosis: Likely upper respiratory infection, viral infection and pharyngitis Discharge Plan Discharge Clinical Impression: Acute pharyngitis Patient Disposition: Home Condition: Stable Instructions: Antibiotic Form, Strep Throat (ED) Additional Instructions: Your strep test was negative today. Due to your symptoms and exam findings I am prescribing an antibiotic. Take antibiotic as prescribed until gone. Change toothbrush after taking antibiotic for 24 hours. Take Tylenol or ibuprofen every 6-8 hours as needed for fever and pain. Drink plenty fluids and rest. See your doctor if symptoms are not improving. Patient Language: Czech Prescriptions: New amoxicillin 500 mg capsule 500 mg PO Q12H 10 Days Qty: 20 0RF No Action levothyroxine 75 mcg tablet 75 mcg PO DIRECTED albuterol sulfate 90 mcg/actuation HFA aerosol inhaler 1 puff INHALATION DIRECTED budesonide-formoterol [Symbicort] 80-4.5 mcg/actuation HFA aerosol inhaler 1 puff INHALATION DIRECTED cetirizine [Zyrtec] 10 mg Tablet 10 mg PO DIRECTED fluticasone propionate 50 mcg/actuation spray,suspension 1 spray INTRANASAL DIRECTED B Complex-Vitamin B12 1 tab-cap PO DIRECTED Gummies Girls' Multivitamins Tablet,Chewable 1 tablet PO DIRECTED Follow-up/Referrals: Anaid Luong MD [Primary Care Provider] - Time of Disposition: 15:01
[2025-02-15 14:45] LABS: EDSTREPNEGPOS1 Negative (Negative)
[2025-02-15 14:57] LABS: EDCOVIDSCREEN Negative (Negative); EDINFLUASCREEN Negative (Negative); EDINFLUBSCREEN Negative (Negative)
== END 2025-02-15 15:04 | disposition home or self-care (01) ==
PROVIDERS: Emergency Provider Nurse Practitioner Family; PCP Pediatrics
DX: J02.9 Acute pharyngitis, unspecified (principal); Z20.822 Contact with and (suspected) exposure to COVID-19; J45.909 Unspecified asthma, uncomplicated; E07.9 Disorder of thyroid, unspecified
CPT/HCPCS: 87081; 87426; 87804; 87880; 99213; G0463

== ENCOUNTER 2025-06-10 15:07 | Emergency (ER) | payer BC, OTHER, SELFPAY ==
--- OUTSIDE RECORDS SUMMARY | 2024-09-13 04:20 | XMS_ITS ---
Author Organization [facility] Address [address] [place] [address] Care Team Providers Care Business Analyst Manager Name Role Phone Rosalie Barrientos [phone] REASON FOR VISIT est. care vincenzo Encounters Encounter Location Date Provider Diagnosis [facility]MO Dr. Barrientos [address] [place] [phone] 09/13/2024 Rosalie Barrientos Plan Of Treatment Next Appt Details Provider Name:Rosalie Barrientos, 09:40:00 AM, [address] [place] [address], [phone], Provider Name:Rosalie Barrientos, 10:00:00 AM, [address] [place] [address], [phone], History and Physical Notes * HPI (History of Present Illness) Category Sub-Category Detail Notes Category Not es History of Present Illness 18 yo male comes in to establish care in management of Progress Notes * Malissa LEBRONOB:[birth year] (19 yo F)Acc No.[id number]:09/13/2024 Progress Notes Patient: Sam Ray Provider: Efra Barrientos MD :2005 A ge:18 Y S ex:Female Date:09/13/2024 Address:[address] [place] [address] [address] [facility] Subjective: * Chief Complaints: * E st. care vincenzo * HPI: H istory of Present Illness: 18 yo male comes in to establish care in management of. * Electronic signature of Celestino Barrientos MD on 06/10/2025 at 03:09 PM MARKETING CAMPAIGN ANALYST Sign off status: Pending * Provider: Efra Barrientos MD Date: 0 09/13/2024 Generated for Everardo neal/Na/Esequiel on: 1 08/10/2024 03:09 PM MARKETING CAMPAIGN ANALYST
--- OUTSIDE RECORDS SUMMARY | 2024-11-09 04:20 | XMS_ITS ---
Author Organization [facility] Address [address] [place] [address] Care Team Providers Care Credit Collections Manager Name Role Phone Floyd Rosaliedeepa Sanchez [phone] REASON FOR VISIT est. care vincenzo Encounters Encounter Location Date Provider Diagnosis [facility] Dr. Barrientos [address] [place] [phone] 11/09/2024 Rosalie Barrientos Plan Of Treatment Next Appt Details Provider Name:Rosalie Barrientos, 09:40:00 AM, [address] [place] [address], [phone], Provider Name:Rosaile Barrientos, 10:00:00 AM, [address] [place] [address], [phone], Progress Notes * Malissa LEBRONOB:[birth year] (19 yo F)Acc No.[id number]:11/09/2024 Progress Notes Patient: Sam Ray Provider: Efra Barrientos MD :2005 A ge:19 Y S ex:Female Date:11/09/2024 Address:[address] [facility] Subjective: * Chief Complaints: * E [facility] care vincenzo * Electronic signature of Celestino Barrientos MD on 06/10/2025 at 03:09 PM SPECIAL POLICE OFFICER Sign off status: Pending * Provider: Efra Barrientos MD Date: 0 11/09/2024 Generated for Everardo neal/Na/Esequiel on: 1 08/10/2024 03:09 PM SPECIAL POLICE OFFICER
--- OUTSIDE RECORDS SUMMARY | 2025-06-10 15:09 | XMS_ITS | Encounter Summary ---
Author Organization [facility] Address [address] [facility] [place] [address] Care Team Providers Care Medical Geneticist Name Role Phone Anaid Luong MD Primary Care Provider [phone] Bria Mendoza DO Unavailable [phone] Reason for Visit * Reason Onset Date Comments Results 01/27/2012 Encounter Details Date Type Department Care Team (Late st Contact Info) Description 01/27/2012 Telephone [facility] Pediatrics - Immunology [address] [place] [address] Tamra Black RN Results Social History Tobacco Use Types Packs/Day Years Used Date Smoking Tobacco: Never Comments Unknown Sex and Gender Information Value Date Recorded Sex Assigned at Female 08/08/2022 1:01 PM INSPECTOR SEMICONDUCTOR WAFER Legal Sex Female 5:44 AM INSPECTOR SEMICONDUCTOR WAFER Gender Identity Female 08/08/2022 1:01 PM INSPECTOR SEMICONDUCTOR WAFER Sexual Orientation Not on file documented as [...] diseases documented in this encounter Care Teams Medical Geneticist Relationship Specialty Start Date End Date Anaid Luong MD [address] [place] [address] [address] [place] [address] PCP - General 11/22/10 Bria Mendoza DO [address] [place] [address] Pediatrics 12/07/19 documented as of this encounter
--- OUTSIDE RECORDS SUMMARY | 2025-06-10 15:09 | XMS_ITS | Clinical Summary ---
Author Organization [facility] Address [address] [place] [address] Care Team Providers Care Gameplay Engineer Name Role Phone Anaid Luong MD Primary Care Provider [phone] Bria Mendoza DO Unavailable [phone] Source Comments [facility],non-owned Affiliates and Associated Physician Practices is amultiple site organization consisting of ambulatory clinics and hospital sitesin [place], [place], [place] and [place]. This disclosure is being madepursuant to the Care Everywhere program and may not contain all information available regarding this patient. Last updated 18.[facility] Allergies No known active allergies Medications * [...] 1.3 Assessment & Plan (08/03/2019 4:18 PM DISTRICT RESOURCE OFFICER): Scheduled for adenotonsillectomy now in October (during [...] has had the influenza vaccine for the 2909-2374 season. The patient's parent(s) and I discussed [...] medications. Assessment & Plan (08/03/2019 4:16 PM DISTRICT RESOURCE OFFICER): As noted below, continues to do quite [...] care for likely viral gastroenteritis. Follow-up with histotechnician in 2-3 days. Recurrent infections 01/15/2012 Overview [...] PRN Assessment & Plan (07/02/2016 1:49 PM DISTRICT RESOURCE OFFICER): Recent increase in symptoms, frequent albuterol use [...] Sex Assigned at Female 08/08/2022 1:01 PM DISTRICT RESOURCE OFFICER Legal Sex Female 5:44 AM DISTRICT RESOURCE OFFICER Gender Identity Female 08/08/2022 1:01 PM DISTRICT RESOURCE OFFICER Sexual Orientation Not on file Last Filed Vital Signs Vital Sign Reading Time Taken Comments Blood Pressure 119/68 06/27/2024 1:48 PM DISTRICT RESOURCE OFFICER Pulse 56 06/27/2024 1:48 PM DISTRICT RESOURCE OFFICER Temperature 36.6 C (97.8 F) 03/15/2015 2:45 PM CDT Respiratory Rate 16 06/27/2024 1:48 PM DISTRICT RESOURCE OFFICER Oxygen Saturation 99% 11/12/2022 3:47 PM CDT Inhaled Oxygen Concentration - - Weight 83.9 kg (184 lb 15.5 oz) 06/27/2024 1:48 PM DISTRICT RESOURCE OFFICER Height 157 cm (5' 1.81) 06/27/2024 1:48 PM DISTRICT RESOURCE OFFICER Body Mass Index 34.04 06/27/2024 1:48 PM DISTRICT RESOURCE OFFICER Body Mass Index Percentile 96.69% 06/27/2024 1:4 8 PM DISTRICT RESOURCE OFFICER Growth Chart: CDC (Girls, 2- 20 Years) Plan of Treatment Health Maintenance Due Date Last Done Comments PNEUMOCOCCAL VACCINE (1 of 1 - PPSV23, PCV20, or PCV21) 10/04/2011 10/14/2006, 04/06/2006, 02/02/2006, Additional history exists HIV SCREENING 2020 CHLAMYDIA/GONORRHEA SCREENING 2021 MENINGOCOCCAL (Group B) VACC INE SHARED DECISION-MAKING (2 of 2 - Bexsero SCDM 2-dose series) 06/10/2023 12/08/2022 HEPATITIS C SCREENING 09/29/2023 DEPRESSION SCREENING 07/20/2024 10/26/2023, 10/13/2022, 01/24/2022 COVID-19 VACCINE (1 - 2024-2 6 season) 2025 INFLUENZA VACCINE (#1) 2025 , 03/29/2019, 03/29/2019, [...] 12/08/2022, 12/31/2016 Medical Devices Implanted Type Area Credit Consultant Device Identifier Shelf Expiration Date Model / Serial / Lot Log [id number] - Tympanostomy Tubes Jose - 1 - Tube Vent Cllr Butn 3mm X 1.5mm X 1.27mm Implanted:Qty: 2 on 01/19/2012 at [facility] Bilateral : Ear [employer] 10/18/2016 [id number] / / [place] [id number] [facility] CARE [facility] [place] [address] [facility] [place] [id number] [facility] Care Teams Gameplay Engineer Relationship Specialty Start Date End Date Anaid Luong MD [address] [facility] [address] [place] [address] PCP - General 11/22/10 Bria Mendoza DO [address] [place] [address] Pediatrics 12/07/19
--- OUTSIDE RECORDS SUMMARY | 2025-06-10 15:09 | XMS_ITS | Encounter Summary ---
Author Organization [facility] Address [address] [place] [address] Care Team Providers Care Quill Collector Name Role Phone Anaid Luong MD Primary Care Provider [phone] Bria Mendoza DO Unavailable [phone] Reason for Visit * Reason Onset Date Comments Refill Request 04/26/2019 Levothyroxine Encounter Details Date Type Department Care Team (Late st Contact Info) Description 04/26/2019 Telephone [facility] Pediatrics - Endocrinology [address] [place] [id number] Mendy Carrasco Refill Request (Levothyroxine ) Social History Tobacco Use Types Packs/Day Years Used Date Smoking Tobacco: Never Smokeless Tobacco: Never Comments No Sex and Gender Information Value Date Recorded Sex Assigned at Female 08/08/2022 1:01 PM ABALONE FISHERMAN Legal Sex Female 5:44 AM ABALONE FISHERMAN Gender Identity Female 08/08/2022 1:01 PM ABALONE FISHERMAN Sexual Orientation Not on file documented as [...] on filedocumented in this encounter Care Teams Quill Collector Relationship Specialty Start Date End Date Anaid Luong MD [address] [facility] [address] [place] [address] PCP - General 11/22/10 Bria Mendoza DO [address] [place] [address] Pediatrics 12/07/19 documented as of this encounter
--- OUTSIDE RECORDS SUMMARY | 2025-06-10 15:09 | XMS_ITS | Encounter Summary ---
Author Organization [facility] Address [address] [facility] [place] [address] Care Team Providers Care Children'S Librarian Name Role Phone Anaid Luong MD Primary Care Provider [phone] Bria Mendoza DO Unavailable [phone] Encounter Details Date Type Department Care Team (Late st Contact Info) Description 12/10/2020 Telephone [facility] Pediatrics - Endocrinology [address] [place] [address] Bria Mendoza, [address] [place] [address] Social History Tobacco Use Types Packs/Day Years Used Date Smoking Tobacco: Never Smokeless Tobacco: Never PHQ-2 Answer Date Recorded Patient Health Questionnaire-2 Score 1 06/06/2020 Comments No Sex and Gender Information Value Date Recorded Sex Assigned at Female 08/08/2022 1:01 PM OTOLOGIST Legal Sex Female 5:44 AM OTOLOGIST Gender Identity Female 08/08/2022 1:01 PM OTOLOGIST Sexual Orientation Not on file COVID-19 Exposure [...] Author No 03/15/2015 2:20 PM CDT Heron Smiht RN * Does person have difficulty dressing/bathing? [...] on filedocumented in this encounter Care Teams Children'S Librarian Relationship Specialty Start Date End Date Anaid Luong MD [facility] [facility] [address] [place] [address] PCP - General 11/22/10 Bria Mendoza DO [facility] [place] [address] Pediatrics 12/07/19 documented as of this encounter
[2025-06-10 15:15] VITALS: BP 112/75; PULSE 130; RESP 20; TEMP 37.2; O2SAT 99
[2025-06-10 15:24] VITALS: PULSE 100
--- NOTE | 2025-06-10 15:34 | ED.URI ---
HPI - URI/Sore Throat General Chief Complaint: Upper Respiratory Infection Stated Complaint: Sore Throat Time Seen by Provider: 06/10/25 15:34 Source: patient, RN notes reviewed and old records reviewed Mode of arrival: ambulatory Limitations: no limitations History of Present Illness HPI Narrative: 19 year old female who presents to [facility] care with complaints of sore throat which started today with patient having fevers up to 101.3F today. Patient reports that she had 3 emesis yesterday but has not had any vomiting today and has been able to keep fluids down. Patient reports that she has taken Tylenol and Ibuprofen for her discomfort. MD elicited complaint: cough and sore throat Pertinent past history: other (strep throat) Onset (ago): day(s) (1) Severity: severe Pain scale (0-10): 10 Able to tolerate fluids by mouth: Yes Exacerbating factors: swallowing Treatments prior to arrival: acetaminophen and ibuprofen Related Data Home Medications ?Medication ?Instructions ?Recorded ?Confirmed ?Last Taken ?Type albuterol sulfate 90 mcg/actuation 1 puff inhalation DIRECTED 07/02/19 01/06/24 Unknown History aerosol inhaler budesonide-formoterol HFA 80 1 puff inhalation DIRECTED 07/02/19 01/06/24 01/05/24 History mcg-4.5 mcg/actuation aerosol inhaler (Symbicort) cetirizine 10 mg tablet (Zyrtec) 10 mg PO DIRECTED 07/02/19 01/06/24 Unknown History fluticasone propionate 50 1 spray intranasal DIRECTED 07/02/19 01/06/24 01/05/24 History mcg/actuation nasal spray,suspension levothyroxine 75 mcg tablet 75 mcg PO DIRECTED 07/02/19 01/06/24 01/05/24 History B Complex-Vitamin B12 1 tab-cap PO DIRECTED 05/28/21 01/06/24 Unknown History pediatric multivitamin no.29 1 tablet PO DIRECTED 05/28/21 01/06/24 Unknown History (Gummies Girls' Multivitamins chewable tablet) Allergies Allergy/AdvReac Type Severity Reaction Status Date / Time cat dander Allergy Mild EYES RED, Verified 06/10/25 15:31 SNEEZING Review of Systems Review of Systems: CONSTITUTIONAL: Reports malaise, chills, sweats, or fever. EYES: Denies visual changes, redness, or discharge. ENT: Reports no rhinorrhea, congestion, sinus pain,no otalgia and positive for sore throat. CARDIOVASCULAR: Denies chest pain, palpitations, or edema. RESPIRATORY: Reports no cough.? Denies dyspnea. GASTROINTESTINAL: Denies abdominal pain, nausea,+ for vomiting X3 yesterday,no diarrhea SKIN: Denies rash or itching. MUSCULOSKELETAL: Denies myalgia. NEUROLOGIC: Denies headache. All systems reviewed & are unremarkable except as noted in HPI and below PMFSH Past Medical History Medical History (Updated 06/10/25 @ 20:00 by Genny Blandon APRN) Streptococcal sore throat Thyroid disease Anxiety Asthma Allergies Surgical History Surgical History History of placement of ear tubes Family History Family History Mother Asthma Depression Thyroid disorder Social History Social History Smoking status: Never smoker Alcohol intake: never Substance use: never Substance use type: does not use Living arrangements: with family Comments At time of signature, agree with nursing past medical, surgical, social and family history. There is no relevant family history pertinent to the presenting complaint Exam Narrative: GENERAL: Well-appearing, well-nourished, and in no acute distress. HEAD: Normocephalic EYES: PERRLA, conjunctivae clear ENT: Nares clear, turbinates edematous and erythematous, clear discharge. Mucous membranes moist. TM pearly lewis with dull light reflex bilaterally; no tragal tenderness. Oropharynx erythematous without lesions. Tonsils red enlarged and without exudate, no drooling, no hoarseness, no trismus, uvula midline, positive for painful swallowing. NECK: Supple. No lymphadenopathy CHEST: Clear to auscultation, breath sounds equal. No wheezing, rhonchi, rales, or stridor. No respiratory distress, speaks in full sentences.SAO2 99% on room air HEART: Regular rate and rhythm. No murmur heard. SKIN: Warm, dry, no rash. NEURO: Alert and oriented x3. PSYCH: Normal mood and affect Course Course Emergency Course: Patient is aware of diagnosis, understands and agrees to treatment plan.? Anticipatory guidance given.? Patient agrees to follow-up as directed and is aware of reasons to seek care at the emergency department. Portions of this record may have been created with voice recognition software Level of Care: Express Care Visit Vital Signs Vital signs: Vital Signs Temperature 37.2 C 06/10/25 15:15 Pulse Rate 130 H 06/10/25 15:15 Respiratory Rate 20 06/10/25 15:15 Blood Pressure 112/75 06/10/25 15:15 Pulse Oximetry 99 06/10/25 15:15 Oxygen Delivery Room Air 06/10/25 15:15 Temperature 37.2 C 06/10/25 15:15 Pulse Rate 100 06/10/25 15:24 Respiratory Rate 20 06/10/25 15:15 Blood Pressure 112/75 06/10/25 15:15 Pulse Oximetry 99 06/10/25 15:15 Oxygen Delivery Room Air 06/10/25 15:15 Reviewed MDM - URI/Sore Throat MDM Narrative Medical decision making narrative: Differential diagnosis considered: Small virus, strep pharyngitis, allergic rhinitis, upper respiratory tract infection, sinusitis, rhinosinusitis, nasopharyngitis. viral pharyngitis, otitis media, otitis externa, pneumonia, bronchitis, viral cough syndrome, viral syndrome, and influenza.? Exam findings show no acute concerns or changes; patient is non-toxic appearing and is in no distress.? Patient is appropriate for outpatient treatment and follow-up. Differential Diagnosis Differential diagnosis: Likely upper respiratory infection, sinusitis, viral infection, pharyngitis and other (strep pharyngitis) Medical Records Attestation: I reviewed the patient's medical records. Lab Data Attestation: I reviewed the patient's lab results. Lab results narrative: strep screen positive Critical Care Time Critical Care Time Critical Care Time: No Discharge Plan Discharge Clinical Impression: Streptococcal sore throat Patient Disposition: Home Condition: Stable Instructions: Antibiotic Form, Strep Throat (ED) Additional Instructions: You tested positive for Group A strep . Take the entire course of antibiotics. Throw away your current toothbrush and begin using a new toothbrush in 48 hours in order to prevent re-infection. Sanitize all reusable water bottles . Do not share items with others. Salt water gargles may alleviate some of the throat discomfort. You can take Tylenol or ibuprofen per the package instructions for pain/fever. If your symptoms persist, change or worsen significantly before you can contact your personal physician then please, without delay, go to the emergency department for further evaluation. Follow-up with PCP in 7-10 days or sooner if needed Patient Language: [place] Prescriptions: New amoxicillin 875 mg tablet 875 mg PO Q12H Qty: 20 0RF Rx Instructions: take all doses of oral antibiotic No Action levothyroxine 75 mcg tablet 75 mcg PO DIRECTED albuterol sulfate 90 mcg/actuation HFA aerosol inhaler 1 puff INHALATION DIRECTED budesonide-formoterol [Symbicort] 80-4.5 mcg/actuation HFA aerosol inhaler 1 puff INHALATION DIRECTED cetirizine [Zyrtec] 10 mg Tablet 10 mg PO DIRECTED fluticasone propionate 50 mcg/actuation spray,suspension 1 spray INTRANASAL DIRECTED B Complex-Vitamin B12 1 tab-cap PO DIRECTED Gummies Girls' Multivitamins Tablet,Chewable 1 tablet PO DIRECTED Follow-up/Referrals: Anaid Luong MD [Primary Care Provider, Pediatrics] Time of Disposition: 15:42 Quality Aj Coma Scale Eyes: Open Verbal: Oriented and Alert Motor: Follows Commands [place] Coma Total Score: 15
[2025-06-12 11:49] LABS: EDSTREPNEGPOS1 Positive (Negative)
== END 2025-06-10 15:48 | disposition home or self-care (01) ==
PROVIDERS: Emergency Provider Registered Nurse; PCP Pediatrics
DX: J02.0 Streptococcal pharyngitis (principal); J45.909 Unspecified asthma, uncomplicated; E07.9 Disorder of thyroid, unspecified
CPT/HCPCS: 87880; 99213; G0463